=== PATIENT | female | born 2000 | race Caucasian/White ===

== ENCOUNTER 2024-01-12 10:14 | Emergency (ER) | payer OTHER ==
[~2024-01-12] VITALS: Ht 157.4 cm; Wt 45.4 kg
[2024-01-12] MEDS ORDERED: Tetracaine Hydrochloride 0.5% 4 ML BOT OPH ONE (11:45)
[2024-01-12] MEDS ORDERED: FLUORESCEIN SODIUM 1 MG STRIP OPH ONE (11:45)
[2024-01-12] MEDS ORDERED: Ciprofloxacin Hydrochloride 0.3% OPHTHLAMIC BOTTLE OPH ONE (12:00)
== END 2024-01-12 13:01 | disposition home or self-care (01) ==
LOC: ED 10:14
DX: H10.9 Unspecified conjunctivitis (principal); F17.200 Nicotine dependence, unspecified, uncomplicated

== ENCOUNTER 2024-01-16 19:15 | Emergency (ER) | payer OTHER ==
[~2024-01-16] VITALS: Ht 152.4 cm; Wt 46.7 kg
[2024-01-16] MEDS ORDERED: FLUORESCEIN SODIUM 1 MG STRIP OPH ONE (19:40)
[2024-01-16] MEDS ORDERED: Tetracaine Hydrochloride 0.5% 4 ML BOT OPH ONE (19:40)
== END 2024-01-16 20:48 | disposition home or self-care (01) ==
LOC: ED 19:15
DX: H10.9 Unspecified conjunctivitis (principal)

== ENCOUNTER 2024-08-24 22:56 | Emergency (ER) | payer SELFPAY ==
[~2024-08-24] VITALS: Ht 147.3 cm; Wt 45.4 kg
[2024-08-25] MEDS ORDERED: NAPROSYN500 MG PO (01:00)
[2024-08-25] MEDS ORDERED: ALBUTEROL 8 GM INHALER INH ONE (01:00)
[2024-08-25] MEDS ORDERED: AZITHROMYCIN 250 MG TAB PO ONE (01:00)
[2024-08-25] MEDS ORDERED: Acetaminophen/Codeine Phosph #3 PO ONE (01:00)
[2024-08-25] MEDS ORDERED: ZITHROMAX250 MG PO (01:00)
[2024-08-25] MEDS ORDERED: NAPROXEN 250 MG TAB PO ONE (01:25)
== END 2024-08-25 01:10 | disposition home or self-care (01) ==
LOC: ED 22:56
DX: R05.9 Cough, unspecified (principal); H66.92 Otitis media, unspecified, left ear; R06.2 Wheezing; Z88.0 Allergy status to penicillin